=== PATIENT | female | born 1985 | race Caucasian/White ===

== ENCOUNTER 2018-03-02 16:47 | Emergency (ER) | payer OTHER ==
[~2018-03-02] VITALS: Ht 167.6 cm; Wt 117.3 kg
[~2018-03-02 16:47] MED LIST: ADDERALL XR 3030 MG PO; AMERGE2.5 MG PO; CELEXA40 MG PO; CIPRO500 MG PO; CLEOCIN300 MG PO; CYCLOBENZAPRINE 10 M PO; DEXEDRINE, DEXT10 MG PO; DEXTROAMP-AMPHE20 MG; FLOMAX0.4 MG PO; IBUPROFEN600 MG; IMITREX25 MG PO; LEVOTHYROXINE25 MCG PO; NEURONTIN300 MG PO; PERCOCET 5/31 TABLET PO; PROMETHAZINE HC25 M1 PO; REGLAN10 MG PO; RELPAX40 MG PO; SOMA250 MG PO; SYNTHROID25 MCG PO; SYNTHROID50 MCG PO; TORADOL10 MG PO; ZOFRAN4 MG PO; ZOLPIDEM TARTRA10 MG; ZYRTEC10 M3 PO
[2018-03-02 17:16] LABS: HEMOGLOBIN 13.6 G/DL (11.9-15.5); MCH 28.5 PG (29.0-34.0); MCV 83.7 FL (83-99); PLATELET COUNT 399 K/uL (156-360); RED BLOOD COUNT 4.78 M/uL (3.80-5.20); WHITE BLOOD COUNT 12.8 K/uL (4.1-10.2)
[2018-03-02 17:26] LABS: ALBUMIN 4.4 g/dL (3.2-4.8); CHLORIDE 101 mEq/L (99-109); POTASSIUM 3.9 mEq/L (3.7-5.4); SODIUM 137 mEq/L (136-147)
[2018-03-02 17:28] LABS: GLUCOSE 98 mg/dL (70-99); TOTAL PROTEIN 8.1 g/dL (6.4-8.3)
[2018-03-02 17:30] LABS: APPEARANCE SL.HAZY ((CLEAR)); BILIRUBIN NEGATIVE; BLOOD NEGATIVE; COLOR YELLOW ((YELLOW)); GLUCOSE (STRIP) NEGATIVE; KETONES NEGATIVE; LEUKOCYTES NEGATIVE; NITRITE NEGATIVE; PROTEIN (STRIP) 30; SPECIFIC GRAVITY 1.025 (1.000-1.030); UROBILINOGEN 0.2 MG/DL (0.2-1.0)
[2018-03-02 17:30] LABS: TOTAL BILIRUBIN 0.3 mg/dL (0.0-1.0)
[2018-03-02 17:32] LABS: ALKALINE PHOSPHATASE 103 IU/L (3-129); CREATININE 0.8 mg/dL (0.6-1.3); GFR ESTIMATE (CALCULATED) > 59 mL/min/
[2018-03-02 17:33] LABS: UREA NITROGEN (BUN) 12 mg/dL (9-23)
[2018-03-02 17:34] LABS: BACTERIA RARE /HPF; EPITHELIAL CELLS 1+ /HPF; HYALINE CASTS 0-5 /LPF; MUCUS 2+ /LPF; UCUL ADDED? NO; WHITE BLOOD CELLS 0-5 /HPF (0-5)
[2018-03-02 17:34] LABS: AST (GOT) 32 IU/L (2-34)
[2018-03-02 17:35] LABS: ALT (GPT) 34 IU/L (3-49); LIPASE 6 U/L (1.0-51.0)
[2018-03-02 17:37] LABS: D-DIMER ELISA < 150.00 ng/mLDDU (<230)
[2018-03-02 17:41] LABS: QUANTITATIVE HCG < 4.0 MIU/ML
[2018-03-02] MEDS ORDERED: BENTYL20 MG PO (20:12)
[2018-03-02] MEDS ORDERED: REGLAN10 MG PO (20:12)
[2018-03-02 21:49] VITALS: BP 106/65
== END 2018-03-02 21:50 | disposition home or self-care (01) ==
LOC: EME 16:47 → EXP 16:47
PROVIDERS: Nurse Practitioner Family
DX: R10.11 Right upper quadrant pain (principal); R11.2 Nausea with vomiting, unspecified; R06.02 Shortness of breath; D72.829 Elevated white blood cell count, unspecified; R51 Headache; R07.9 Chest pain, unspecified; R00.0 Tachycardia, unspecified; Z90.49 Acquired absence of other specified parts of digestive tract; Z87.442 Personal history of urinary calculi; E03.9 Hypothyroidism, unspecified; Z88.0 Allergy status to penicillin; Z88.1 Allergy status to other antibiotic agents; Z87.891 Personal history of nicotine dependence
CPT/HCPCS: 71046; 74177; 80053; 81003; 83605; 83690; 84702; 85027; 85379; 87040; 93005; 99281; 99284; J1885; J2765; J3010; J7030